=== PATIENT | female | born 1955 | race Two or more races ===

== ENCOUNTER 2017-01-16 09:42 | Emergency (ER) | payer MEDICAID ==
[~2017-01-16] VITALS: Ht 162.6 cm; Wt 54.4 kg
[2017-01-16 10:00] VITALS: BP 142/69
== END 2017-01-16 11:19 | disposition home or self-care (01) ==
LOC: ER 09:42
DX: S93.401A Sprain of unspecified ligament of right ankle, initial encounter (principal); W01.0XXA Fall on same level from slipping, tripping and stumbling without subsequent striking against object, initial encounter; Y93.89 Activity, other specified; Y92.89 Other specified places as the place of occurrence of the external cause; Y99.8 Other external cause status
CPT/HCPCS: 73610

== ENCOUNTER 2017-08-28 11:21 | Emergency (ER) | payer MEDICAID ==
[~2017-08-28] VITALS: Ht 162.6 cm; Wt 59.0 kg
[2017-08-28] MEDS ORDERED: ACETAMINOPHEN 500 MG TAB PO ONE (11:31)
[2017-08-28] MEDS ORDERED: IBUPROFEN 600 MG TAB PO ONE ×2 (11:32→11:45)
[2017-08-28 11:34] VITALS: BP 152/77
== END 2017-08-28 14:24 | disposition home or self-care (01) ==
LOC: ER 11:21
DX: J11.1 Influenza due to unidentified influenza virus with other respiratory manifestations (principal); E07.9 Disorder of thyroid, unspecified
CPT/HCPCS: 71046; 81002; 87400